=== PATIENT | male | born 1970 | race Caucasian/White ===

== ENCOUNTER 2017-10-14 08:03 | Emergency (ER) | payer OTHER, SELFPAY ==
[~2017-10-14 08:03] MED LIST: Sodium Chloride 0.9% 1,000 ML BAG ONE; Sodium Chloride 0.9% 100 ML BAG ONE
[2017-10-14] MEDS ORDERED: Benzonatate 100 MG CAP ONE (09:05)
--- NOTE | 2017-10-14 09:06 | RAD ---
PORTABLE CHEST: HISTORY: Cough. FINDINGS: The lungs appear clear on this portable exam. Heart and mediastinum unremarkable. IMPRESSION: No acute process seen on portable exam. POS: [facility]
[2017-10-14 09:14] LABS: #Basophils 0.1 thou/uL (0.0-0.2); #Eosinphils 0.1 thou/uL (0.0-0.7); #Lymphocytes 2.5 thou/uL (1.20-3.40); #Monocytes 1.1 thou/uL (0.11-0.59); #Neutrophils 11.6 thou/uL (1.40-6.50); %Basophils 0.9 % (0.0-1.0); %Eosinophils 0.9 % (0.0-10.0); %Lymphocytes 16.1 % (21.0-51.0); %Monocytes 6.9 % (0.0-10.0); %Neutrophils 75.3 % (42.0-75.0); Hemoglobin 18.3 g/dL (14.0-18.0); Mean Corpuscular HGB CONC 35.1 g/dL (32.0-36.0); Mean Corpuscular Hemoglobin 33.4 pg (27.0-31.0); Mean Corpuscular Volume 95.2 fl (80.0-94.0); Mean Platelet Volume 8.5 fL (7.4-10.4); Platelet Count 300 thou/uL (130-400); RBC Distribution Width 10.5 % (11.5-14.5); Red Blood Cell (RBC) Count 5.47 mill/uL (4.70-6.10); White Blood Cell (WBC) Count 15.4 thou/uL (4.8-10.8)
[2017-10-14 09:24] LABS: Hemoglobin A1c 12.8 % (4.0-6.0)
[2017-10-14 09:29] LABS: ALT (SGPT) 32 U/L (8-55); AST (SGOT) 11 U/L (5-34); Albumin 4.5 g/dL (3.5-5.0); Alkaline Phosphatase 135 U/L (40-150); Anion Gap 30 mmol/L (10-20); BUN (Urea Nitrogen) 35 mg/dL (8.9-20.6); Bilirubin, Total 0.4 mg/dL (0.2-1.2); Calc. Creatinine Clearance 0 mL/min (70-130); Calcium 10.9 mg/dL (7.8-10.44); Carbon Dioxide 15 mmol/L (22-29); Chloride 85 mmol/L (98-107); Estimated GFR-MDRD 40; Potassium 6.4 mmol/L (3.5-5.1); Protein, Total 8.5 g/dL (6.0-8.3); Sodium 124 mmol/L (136-145)
[2017-10-14 09:30] LABS: Bilirubin Negative (Negative); Blood, Urine Trace (Negative); Glucose, Urine (Dipstick) 500 mg/dL (Negative); Leukocyte Negative (Negative); Nitrite Negative (Negative); Protein, Urine (Dipstick) 30 mg/dL (Neg-Trace); Urobilinogen 0.2 mg/dL (0.2-1.0)
[2017-10-14 09:31] LABS: Bacteria/HPF Rare-Few HPF (None Seen); Clarity Hazy (Clear); RBC/HPF 0-3 HPF (0-3); Squamous Epithelial 0-3 HPF (0-3); WBC/HPF 0-3 HPF (0-3)
[2017-10-14] MEDS ORDERED: Calcium Chloride 1 GM/10 ML Abboject SYRINGE ONE (09:58)
[2017-10-14] MEDS ORDERED: Insulin Regular 300 UNITS/3 ML VIAL ONE (09:58)
[2017-10-14 10:18] LABS: Glucose 941 mg/dL (70-105)
== END 2017-10-14 11:00 | disposition short-term general hospital (02) ==
LOC: MADERS 08:03
DX: E11.65 Type 2 diabetes mellitus with hyperglycemia (principal); E87.8 Other disorders of electrolyte and fluid balance, not elsewhere classified; E86.0 Dehydration; I10 Essential (primary) hypertension; F17.210 Nicotine dependence, cigarettes, uncomplicated
CPT/HCPCS: 36416; 71010; 80053; 81001; 83036; 83880; 85025; 87086; 93005; 96361; 96365; 96375; J1815; J7050

== ENCOUNTER 2018-08-04 09:28 | Outpatient (CLI) | payer OTHER ==
--- NOTE | 2018-08-04 10:43 | RAD ---
PELVIS 1 VIEW: HISTORY: Chronic hip pain. COMPARISON: None. FINDINGS: There is likely an old right-sided femoral neck fracture. There are secondary degenerative changes o f the right hip, right hip worse than left. There are circumferential femoral head/neck osteophyte c omplexes. IMPRESSION: 1. No acute fracture or malalignment. 2. Advanced degenerative changes of the right hip and mild degenerative changes of the left hip. 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 POS: [facility]
--- NOTE | 2018-08-04 10:49 | RAD ---
RIGHT HIP 2 VIEWS: HISTORY: Pain. COMPARISON: None. FINDINGS: No fracture or malalignment. 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 Circ umferential ring osteophytes. IMPRESSION: No acute abnormality. Moderate to severe degenerative changes. POS: [facility]
== END 2018-08-04 09:29 | disposition home or self-care (01) ==
LOC: MADRAD 09:28
PROVIDERS: ATTEND Obstetrics & Gynecology
DX: M25.551 Pain in right hip (principal); M16.0 Bilateral primary osteoarthritis of hip; M25.751 Osteophyte, right hip
CPT/HCPCS: 72170

== ENCOUNTER 2018-09-22 09:26 | Emergency (ER) | payer OTHER ==
[2018-09-22 10:40] LABS: ALT (SGPT) 51 U/L (8-55); AST (SGOT) 21 U/L (5-34); Albumin 4.4 g/dL (3.5-5.0); Alkaline Phosphatase 73 U/L (40-150); Anion Gap 14 mmol/L (10-20); BUN (Urea Nitrogen) 11 mg/dL (8.9-20.6); Bilirubin, Total 0.5 mg/dL (0.2-1.2); Calc. Creatinine Clearance 0 mL/min (70-130); Calcium 9.4 mg/dL (7.8-10.44); Carbon Dioxide 22 mmol/L (22-29); Chloride 106 mmol/L (98-107); Estimated GFR-MDRD Greater than 90; Globulin 2.8 g/dL (2.4-3.5); Glucose 158 mg/dL (70-105); Potassium 4.2 mmol/L (3.5-5.1); Protein, Total 7.2 g/dL (6.0-8.3); Sodium 138 mmol/L (136-145)
[2018-09-22 10:45] LABS: CKMB 1.1 ng/mL (0-6.6); Troponin I Less than 0.010 ng/mL (< 0.028)
[2018-09-22] MEDS ORDERED: Benzonatate 100 MG CAP ONE (11:28)
[2018-09-22] MEDS ORDERED: Dexamethasone 4 MG TAB ONE (11:28)
--- NOTE | 2018-09-22 12:10 | RAD ---
CHEST 2 VIEWS: HISTORY: Cough. COMPARISON: None. FINDINGS: Lungs are clear. No pneumothorax or effusion. Cardiac silhouette and mediastinal contours are withi n normal limits. IMPRESSION: No acute intrathoracic abnormality. POS: [facility]
== END 2018-09-22 11:43 | disposition home or self-care (01) ==
LOC: MADERS 09:26
DX: J20.9 Acute bronchitis, unspecified (principal); T44.7X5A Adverse effect of beta-adrenoreceptor antagonists, initial encounter; I10 Essential (primary) hypertension; E11.9 Type 2 diabetes mellitus without complications; F17.210 Nicotine dependence, cigarettes, uncomplicated; Z79.84 Long term (current) use of oral hypoglycemic drugs; Z79.899 Other long term (current) drug therapy
CPT/HCPCS: 71046; 80053; 82553; 83735; 83880; 84443; 84484; 93005; J8540

== ENCOUNTER 2019-08-25 03:14 | Emergency (ER) | payer OTHER ==
[2019-08-25] MEDS ORDERED: Ketorolac Tromethamine 30 MG/ML VIAL ONE (04:32)
[2019-08-25] MEDS ORDERED: traMADol HCl 50 MG TAB ONE (04:32)
[2019-08-25] MEDS ORDERED: Ondansetron ODT 4 MG TAB ONE (04:32)
--- NOTE | 2019-08-25 10:23 | RAD ---
PA CHEST AND RIGHT RIB SERIES: Date: 08/25/19 HISTORY: Upper right rib pain. FINDINGS/IMPRESSION: The heart size is normal. The lungs are expanded without focal areas of consolidation, pneumothoraces , or pleural effusions. No right-sided rib fracture seen. POS: [facility]
== END 2019-08-25 04:45 | disposition home or self-care (01) ==
LOC: MADERS 03:14
DX: M94.0 Chondrocostal junction syndrome [Tietze] (principal); E11.9 Type 2 diabetes mellitus without complications; I10 Essential (primary) hypertension; F17.210 Nicotine dependence, cigarettes, uncomplicated; Z79.84 Long term (current) use of oral hypoglycemic drugs; Z79.899 Other long term (current) drug therapy
CPT/HCPCS: 96372; J1885; Q0162

== ENCOUNTER 2020-12-18 06:49 | Emergency (ER) | payer SELFPAY ==
[2020-12-18] MEDS ORDERED: Sodium Chloride 0.9% 100 ML BAG ONE (07:13)
[2020-12-18] MEDS ORDERED: Sodium Chloride 0.9% 1,000 ML ONE ×2 (07:38→08:46)
[2020-12-18] MEDS ORDERED: Ketorolac Tromethamine 30 MG/ML VIAL ONE ×2 (07:38→08:46)
[2020-12-18 08:04] LABS: Hemoglobin 16.7 g/dL (14.0-18.0); Mean Corpuscular Hemoglobin 31.9 pg (27.0-31.0); Mean Corpuscular Volume 93.7 fL (78.0-98.0); Mean Platelet Volume 6.3 fL (7.4-10.4); Platelet Count 278 thou/uL (130-400); RBC Distribution Width 10.7 % (11.5-14.5); Red Blood Cell (RBC) Count 5.24 mill/uL (4.70-6.10); White Blood Cell (WBC) Count 18.6 thou/uL (4.8-10.8)
[2020-12-18 08:15] LABS: Anisocytosis SLIGHT = 6-15 cells (100X) (0-5/hpf); Band 2 % (5-11); Eosinophils 1 % (0-10); Lymphocytes 13 % (21-51); Manual Diff?? YES; Monocytes 6 % (0-10); Platelet Morphology Comment Appears Adequate
[2020-12-18 08:19] LABS: ALT (SGPT) 32 U/L (8-55); AST (SGOT) 12 U/L (5-34); Albumin 4.3 g/dL (3.5-5.0); Alkaline Phosphatase 66 U/L (40-110); Anion Gap 18 mmol/L (10-20); BUN (Urea Nitrogen) 11 mg/dL (8.4-25.7); Bilirubin, Total 0.6 mg/dL (0.2-1.2); Calc. Creatinine Clearance 0 mL/min (70-130); Calcium 9.3 mg/dL (7.8-10.44); Carbon Dioxide 21 mmol/L (22-29); Chloride 102 mmol/L (98-107); Glucose 194 mg/dL (70-105); Lipase 56 U/L (8-78); Potassium 4.2 mmol/L (3.5-5.1); Protein, Total 7.3 g/dL (6.0-8.3); Sodium 137 mmol/L (136-145)
[2020-12-18] MEDS ORDERED: Piperacillin/Tazobactam 3.375 GM VIAL ONE (08:46)
--- NOTE | 2020-12-18 10:02 | CT ---
CT ABDOMEN AND PELVIS WITH CONTRAST: COMPARISON: 10/16/2017. HISTORY: Left lower quadrant abdominal pain. TECHNIQUE: Multiple contiguous axial images were obtained in a CT of abdomen and pelvis with contrast. Sagittal and coronal reformats were performed. FINDINGS: Stranding changes are seen surrounding the colon in the left lower quadrant of the abdomen. Divertic ulosis is seen in the colon. These findings are consistent with acute diverticulitis. No free air o r focal fluid collection are seen in the abdomen or pelvis. There is diffuse fatty infiltration in the liver. The gallbladder, kidneys, adrenal glands, spleen, and pancreas are unremarkable. No abdominal or pelvic lymphadenopathy are seen. Atherosclerotic calcifications are seen in the aort a. The osseous structures, visualized inferior thorax, and abdominal wall soft tissues are unremarkable. IMPRESSION: 1. Acute diverticulitis. 2. Fatty liver. POS: [facility]
[2020-12-18] MEDS ORDERED: Iopamidol 370 76% 100 ML VIAL ONE (12:08)
== END 2020-12-18 09:46 | disposition home or self-care (01) ==
LOC: MADERS 06:49
DX: K57.32 Diverticulitis of large intestine without perforation or abscess without bleeding (principal); E11.9 Type 2 diabetes mellitus without complications; I10 Essential (primary) hypertension; F17.210 Nicotine dependence, cigarettes, uncomplicated; Z79.84 Long term (current) use of oral hypoglycemic drugs; Z79.899 Other long term (current) drug therapy
CPT/HCPCS: 36416; 74177; 80053; 83605; 83690; 85025; 93005; 96365; 96375; J1885; J2543; J3490; J7050; Q9967

== ENCOUNTER 2021-11-23 18:41 | Emergency (ER) | payer SELFPAY ==
[2021-11-23 20:01] LABS: #Basophils 0.1 thou/uL (0.0-0.2); #Lymphocytes 3.3 thou/uL (1.20-3.40); #Monocytes 1.1 thou/uL (0.11-0.59); #Neutrophils 6.1 thou/uL (1.40-6.50); %Basophils 0.6 % (0.0-1.0); %Eosinophils 0.5 % (0.0-10.0); %Lymphocytes 30.8 % (21.0-51.0); %Neutrophils 58.1 % (42.0-75.0); Hemoglobin 16.9 g/dL (14.0-18.0); Mean Corpuscular HGB CONC 32.6 g/dL (32.0-36.0); Mean Corpuscular Hemoglobin 31.1 pg (27.0-31.0); Mean Corpuscular Volume 95.3 fL (78.0-98.0); Mean Platelet Volume 6.8 fL (7.4-10.4); Platelet Count 331 thou/uL (130-400); RBC Distribution Width 10.9 % (11.5-14.5); Red Blood Cell (RBC) Count 5.45 mill/uL (4.70-6.10); White Blood Cell (WBC) Count 10.5 thou/uL (4.8-10.8)
[2021-11-23 20:22] LABS: Base Excess-Venous -5.9 mmol/L (-2.0 to 3.0); Bicarbonate (HCO3v) 18.3 mmol/L (22.0-28.0); CO2 Tension (PvCO2) 32.4 mmHg (42.0-51.0); Calcium, Ionized 1.18 mmol/L (1.15-1.33); Chloride 92 mmol/L (98-107); Hemoglobin - Calc 17.1 g/dL (14.0-18.0); Sodium 121 mmol/L (138-145); T. Carbon Dioxide 19.3 mmol/L (22.0-28.0); vO2 Saturation-calc 92.5 % (60.0-85.0)
[2021-11-23 20:35] LABS: ALT (SGPT) 36 U/L (8-55); AST (SGOT) 15 U/L (5-34); Albumin 4.6 g/dL (3.5-5.0); Alkaline Phosphatase 91 U/L (40-110); Anion Gap 24 mmol/L (10-20); BUN (Urea Nitrogen) 31 mg/dL (8.4-25.7); Bilirubin, Total 0.6 mg/dL (0.2-1.2); Calc. Creatinine Clearance 0 mL/min (70-130); Calcium 10.1 mg/dL (7.8-10.44); Carbon Dioxide 14 mmol/L (22-29); Chloride 89 mmol/L (98-107); Globulin 2.9 g/dL (2.4-3.5); Glucose 727 mg/dL (70-105); Lipase 100 U/L (8-78); Magnesium 2.1 mg/dL (1.6-2.6); Potassium 6.4 mmol/L (3.5-5.1); Protein, Total 7.5 g/dL (6.0-8.3); Sodium 121 mmol/L (136-145)
[2021-11-23] MEDS ORDERED: INSULIN REGULAR IN 0.9 % NACL 100 UNIT/100 ML BAG ONE (20:52)
[2021-11-23] MEDS ORDERED: Sodium Chloride 0.9% 100 ML ONE (20:56)
[2021-11-23] MEDS ORDERED: Insulin Regular 300 UNITS/3 ML VIAL ONE (20:56)
[2021-11-23 21:24] LABS: Bilirubin Negative (Negative); Blood, Urine Negative (Negative); Clarity Clear (Clear); Glucose, Urine (Dipstick) >=1000 mg/dL (Negative); Ketone, Urine 15 mg/dL (Negative); Leukocyte Negative (Negative); Nitrite Negative (Negative); Protein, Urine (Dipstick) Negative (Neg-Trace); Urobilinogen 0.2 mg/dL (Less than 2)
[2021-11-23 21:26] LABS: Specific Gravity, Urine 1.029 (1.002-1.036)
[2021-11-23 22:34] LABS: Base Excess-Venous -6.7 mmol/L (-2.0 to 3.0); Bicarbonate (HCO3v) 16.6 mmol/L (22.0-28.0); CO2 Tension (PvCO2) 27.9 mmHg (42.0-51.0); Calcium, Ionized 1.18 mmol/L (1.15-1.33); Chloride 98 mmol/L (98-107); Hemoglobin - Calc 16.6 g/dL (14.0-18.0); Potassium 4.3 mmol/L (3.5-5.1); Sodium 129 mmol/L (138-145); T. Carbon Dioxide 17.5 mmol/L (22.0-28.0); vO2 Saturation-calc 94.3 % (60.0-85.0)
[2021-11-23 22:39] LABS: Anion Gap 21 mmol/L (10-20); BUN (Urea Nitrogen) 31 mg/dL (8.4-25.7); Calc. Creatinine Clearance 0 mL/min (70-130); Carbon Dioxide 15 mmol/L (22-29); Chloride 97 mmol/L (98-107); Glucose 485 mg/dL (70-105); Potassium 4.3 mmol/L (3.5-5.1); Sodium 129 mmol/L (136-145)
== END 2021-11-24 00:30 | disposition short-term general hospital (02) ==
LOC: MADERS 18:41
DX: E11.00 Type 2 diabetes mellitus with hyperosmolarity without nonketotic hyperglycemic-hyperosmolar coma (NKHHC) (principal); I10 Essential (primary) hypertension; F17.210 Nicotine dependence, cigarettes, uncomplicated; Z79.84 Long term (current) use of oral hypoglycemic drugs; Z79.899 Other long term (current) drug therapy
CPT/HCPCS: 36416; 71045; 80053; 81003; 82010; 82330; 82803; 83605; 83690; 83735; 83880; 84484; 85025; 93005; 96365; 96366; J1815; J3490

== ENCOUNTER 2022-07-25 09:01 | Emergency (ER) | payer SELFPAY ==
[2022-07-25] MEDS ORDERED: Orphenadrine Citrate 60 MG/2 ML VIAL ONE (09:45)
[2022-07-25] MEDS ORDERED: Ketorolac Tromethamine 30 MG/ML VIAL ONE (09:45)
== END 2022-07-25 09:59 | disposition home or self-care (01) ==
LOC: MADERS 09:01
DX: M54.32 Sciatica, left side (principal); I10 Essential (primary) hypertension; E11.9 Type 2 diabetes mellitus without complications; F17.210 Nicotine dependence, cigarettes, uncomplicated
CPT/HCPCS: 96372; 99283; J1885; J2360